=== PATIENT | male | born 1965 | race Caucasian/White ===

== ENCOUNTER 2022-06-25 05:12 | Day surgery (SDC) | payer OTHER ==
[2022-06-23 10:43] VITALS: BMI 23.6
[2022-06-25] MEDS ORDERED: MIDAZOLAM HCL 2 MG/2 ML SINGLE DOSE VIAL ONE (15:49)
[2022-06-25] MEDS ORDERED: PROPOFOL 20 ML ONE ×2 (15:49→16:28)
[2022-06-25] MEDS ORDERED: SUCCINYLCHOLINE CHLORIDE 200 MG/10 ML SYRINGE ONE (15:50)
[2022-06-25] MEDS ORDERED: BUPIVACAINE HCL ONE (16:08)
[2022-06-25] MEDS ORDERED: ceFAZolin SODIUM 1 GM VIAL IVPB ONE (16:09)
[2022-06-25] MEDS ORDERED: oxyCODONE HCL 5 MG TABLET PO PRN (16:28)
[2022-06-25] MEDS ORDERED: ONDANSETRON 4 MG/2 ML VIAL IVPUSH PRN (16:28)
[2022-06-25] MEDS ORDERED: LACTATED RINGERS SOLUTION 1,000 ML IV SCH (16:30)
[2022-06-25] MEDS ORDERED: LIDOCAINE HCL 2% 100 MG/5 ML DISP.SYRIN ONE (17:02)
[2022-06-25] MEDS ORDERED: BUPIVACAINE HCL/PF 0.5% (5 MG/ML) 30 ML VIAL IJ ONE (17:03)
[2022-06-25 18:12] VITALS: PULSE 80
[2022-06-25 18:52] VITALS: BP 135/85; RESP 20; TEMP 97.3
== END 2022-06-25 18:51 | disposition home or self-care (01) ==
LOC: JASU-SURG 05:12
PROVIDERS: ATTEND Urology
PROC: 0VTTXZZ Resection of Prepuce, External Approach (ICD-10-PCS; principal; 2022-06-25 16:23)
DX: N47.1 Phimosis (principal)
CPT/HCPCS: 88304-TC; 94760